=== PATIENT | female | born 1985 | race Caucasian/White ===

== ENCOUNTER → 2017-10-10 | Outpatient (CLI) | payer OTHER ==
[2017-10-10 14:20] LABS: RHEUMATOID FACTOR QUANT < 10.0 IU/ML (0-15.0)
[2017-10-10 14:20] LABS: C REACTIVE PROTEIN QUANTITATIV 1.79 MG/DL (0.00-0.30)
[2017-10-10 15:12] LABS: HEMATOCRIT 36.3 % (36.0-47.0); HEMOGLOBIN 12.3 g/dl (12.0-16.0); MEAN CORPUSCULAR HEMOGLOBIN 29.6 pg (27.0-33.0); MEAN CORPUSCULAR HGB CONC 33.9 g/dl (32.0-36.5); MEAN CORPUSCULAR VOLUME 87.5 fl (80.0-96.0); PLATELET COUNT, AUTOMATED 322 10^3/uL (150-450); RED BLOOD COUNT 4.15 10^6/uL (4.00-5.40); RED CELL DISTRIBUTION WIDTH 11.6 % (11.5-14.5); WHITE BLOOD COUNT 8.4 10^3/uL (4.0-10.0)
[2017-10-10 16:01] LABS: ERYTHROCYTE SEDIMENTATION RATE 26 mm/hr (0-20)
[2017-10-12 00:06] LABS: ANTINUCLEAR ANTIBODIES DIRECT Negative (Negative); Lyme Disease IgG/IgM Antibodie <0.91 ISR (0.00-0.90); Lyme Disease IgM Ab Quantitati <0.80 index (0.00-0.79)
== END ==
LOC: M LAB 13:15
DX: M25.50 Pain in unspecified joint (principal)
CPT/HCPCS: 86140

== ENCOUNTER 2017-12-28 14:55 | Emergency (ER) | payer OTHER ==
[2017-12-28] MEDS ORDERED: ISOVUE-370 76% 100ML VIAL (Q9967) As Ordered (15:49)
[2017-12-28 16:15] LABS: BASO % 0.3 % (0.0-1.0); EOS # 0.1 10^3/uL (0.0-0.50); EOS % 0.6 % (0.0-3.0); HEMATOCRIT 37.6 % (36.0-47.0); HEMOGLOBIN 12.8 g/dl (12.0-16.0); IMMATURE GRANULOCYTE % 0.4 % (0-3.0); LYMPH # 1.7 10^3/uL (1.5-4.5); LYMPH % 14.2 % (24.0-44.0); MEAN CORPUSCULAR HEMOGLOBIN 30.3 pg (27.0-33.0); MEAN CORPUSCULAR VOLUME 88.9 fl (80.0-96.0); MONO # 0.6 10^3/uL (0.0-0.8); MONO % 4.9 % (0.0-5.0); NEUTROPHILS # 9.5 10^3/uL (1.8-7.7); NEUTROPHILS % 79.6 % (36.0-66.0); PLATELET COUNT, AUTOMATED 295 10^3/uL (150-450); RED BLOOD COUNT 4.23 10^6/uL (4.00-5.40); RED CELL DISTRIBUTION WIDTH 11.8 % (11.5-14.5); WHITE BLOOD COUNT 11.9 10^3/uL (4.0-10.0)
[2017-12-28 16:20] LABS: KETONE, URINE AUTO RFX NEGATIVE (NEGATIVE); MUCUS, URINE RFX SMALL (NEGATIVE); NITRITE, URINE AUTO RFX NEGATIVE (NEGATIVE); RBC, URINE AUTO RFX 8 /HPF (0-3); SPECIFIC GRAVITY UR AUTO RFX 1.023 (1.002-1.035); SQUAM EPITHELIAL CELL UR AURFX 6 /HPF (0-6)
[2017-12-28 16:26] LABS: INR 1.05; PROTHROMBIN TIME 13.8 SECONDS (12.4-14.5)
[2017-12-28 16:27] LABS: PARTIAL THROMBOPLASTIN TIME 32.6 SECONDS (26.8-37.9)
[2017-12-28 16:31] LABS: LEUKOCYTE ESTERASE UR AUTO RFX 1+ (NEGATIVE); WBC, URINE AUTO RFX 26 /HPF (0-3)
[2017-12-28 16:33] LABS: LACTIC ACID SEPSIS PROTOCOL 0.7 MMOL/L (0.4-2.0)
[2017-12-28 16:35] LABS: ALBUMIN 4.2 GM/DL (3.2-5.2); ALKALINE PHOSPHATASE 49 U/L (45-117); ALT/SGPT 34 U/L (12-78); AMYLASE 41 U/L (25-115); ANION GAP 8 MEQ/L (8-16); AST/SGOT 24 U/L (7-37); BILIRUBIN,DIRECT 0.2 MG/DL (0.0-0.2); BILIRUBIN,TOTAL 0.8 MG/DL (0.2-1.0); BLOOD UREA NITROGEN 7 MG/DL (7-18); CALCIUM LEVEL 9.1 MG/DL (8.5-10.1); CARBON DIOXIDE LEVEL 25 MEQ/L (21-32); CHLORIDE LEVEL 108 MEQ/L (98-107); CPK CREATINE PHOSPHOKINASE 239 U/L (26-192); CREATININE FOR GFR 0.59 MG/DL (0.55-1.30); GLOMERULAR FILTRATION RATE > 60.0 (>60); GLUCOSE, FASTING 84 MG/DL (70-100); LIPASE 85 U/L (73-393); POTASSIUM SERUM 3.9 MEQ/L (3.5-5.1); SODIUM LEVEL 141 MEQ/L (136-145); TOTAL PROTEIN 7.2 GM/DL (6.4-8.2); TROPONIN I < 0.02 NG/ML (< 0.10)
[2017-12-28 16:36] LABS: CK-MB VALUE MASS 4.3 NG/ML (<3.6); MB/CK RELATIVE INDEX 1.79 (< OR =4)
[2017-12-28 16:37] LABS: ETHYL ALCOHOL (ETHANOL) < 0.003 % (0.000-0.010)
[2017-12-28] MEDS: NS 500 ML IV (16:59)
== END 2017-12-28 18:11 | disposition home or self-care (01) ==
LOC: M ED 14:55
DX: S20.219A Contusion of unspecified front wall of thorax, initial encounter (principal); S30.1XXA Contusion of abdominal wall, initial encounter; S09.90XA Unspecified injury of head, initial encounter; S13.4XXA Sprain of ligaments of cervical spine, initial encounter; V86.52XA Driver of snowmobile injured in nontraffic accident, initial encounter; Y92.89 Other specified places as the place of occurrence of the external cause; Z88.7 Allergy status to serum and vaccine; Z79.899 Other long term (current) drug therapy
CPT/HCPCS: Q9967

== ENCOUNTER 2021-01-26 16:16 | Emergency (ER) | payer OTHER ==
[~2021-01-26] VITALS: Ht 162.6 cm; Wt 87.1 kg
[~2021-01-26 16:16] MED LIST: ADDE20CA3 PO; AMPHET/DEXTR; BUPRPOW2; IBUP800T; SUBO8MIS; XANA0.25 PO
[2021-01-26 17:07] LABS: BASO % 0.4 % (0.0-1.0); EOS # 0.1 10^3/uL (0.0-0.5); EOS % 1.1 % (0.0-3.0); HEMATOCRIT 38.5 % (36.0-47.0); HEMOGLOBIN 13.4 g/dl (12.0-15.5); LYMPH # 2.8 10^3/uL (1.5-5.0); LYMPH % 26.5 % (24.0-44.0); MEAN CORPUSCULAR HEMOGLOBIN 31.6 pg (27.0-33.0); MEAN CORPUSCULAR HGB CONC 34.8 g/dl (32.0-36.5); MEAN CORPUSCULAR VOLUME 90.8 fl (80.0-96.0); MONO # 0.6 10^3/uL (0.0-0.8); MONO % 5.9 % (2.0-8.0); NEUTROPHILS # 6.9 10^3/uL (1.5-8.5); NEUTROPHILS % 65.4 % (36.0-66.0); PLATELET COUNT, AUTOMATED 314 10^3/uL (150-450); RED BLOOD COUNT 4.24 10^6/uL (4.00-5.40); WHITE BLOOD COUNT 10.6 10^3/uL (4.0-10.0)
[2021-01-26 17:54] LABS: BLOOD UREA NITROGEN 12 MG/DL (7-18); CALCIUM LEVEL 9.2 MG/DL (8.5-10.1); CARBON DIOXIDE LEVEL 30 MEQ/L (21-32); CHLORIDE LEVEL 105 MEQ/L (98-107); CREATININE FOR GFR 0.41 MG/DL (0.55-1.30); GLOMERULAR FILTRATION RATE > 60.0 (>60); GLUCOSE, FASTING 79 MG/DL (70-100); HCG, SERUM QUANTITATIVE 138667 MIU/ML; SODIUM LEVEL 139 MEQ/L (136-145)
--- NOTE | 2021-01-26 17:58 | REP ---
INDICATION: vaginal bleeding COMPARISON: None. TECHNIQUE: First trimester transabdominal ultrasound with color Doppler evaluation FINDINGS: Single live early intrauterine is appreciated. Gestational sac with yolk sac and pole identified. [place]-rump length of 18 mm corresponds to 8 weeks 2 days gestational age with estimated date of delivery 09/05/2021. heart rate equals 174 beats per minute. No gross abnormalities are identified. IMPRESSION: Single live early intrauterine at 8 weeks 2 days gestational age. Complete anatomical assessment should be performed and 19-20 weeks. <Electronically signed by Dale Coello > 01/26/21 [id number]
[2021-01-26 18:51] VITALS: BP 119/72
== END 2021-01-26 18:56 | disposition home or self-care (01) ==
LOC: M ED 16:16
DX: O20.8 Other hemorrhage in early pregnancy (principal); Z3A.08 8 weeks gestation of pregnancy; Z79.899 Other long term (current) drug therapy; Z88.7 Allergy status to serum and vaccine

== ENCOUNTER → 2021-05-17 | Outpatient (CLI) | payer OTHER ==
[~2021-05-17] MED LIST changes: +ACET-683 PO; +AKWA1OIN OS; +IBUP80TA PO; +MULTTAB20 PO; +POLYOPD OS; +PRED20TA PO
== END ==
LOC: M WHC 14:02
PROVIDERS: ATTEND Advanced Practice Midwife
DX: O09.522 Supervision of elderly multigravida, second trimester (principal); Z3A.24 24 weeks gestation of pregnancy

== ENCOUNTER 2021-06-07 17:59 | Emergency (ER) | payer OTHER ==
[~2021-06-07] VITALS: Ht 165.1 cm; Wt 91.6 kg
[~2021-06-07 17:59] MED LIST changes: -ACET-683 PO; -AKWA1OIN OS; -IBUP80TA PO; -MULTTAB20 PO; -POLYOPD OS; -PRED20TA PO
[2021-06-07] MEDS ORDERED: MULTTAB20 PO (18:11)
[2021-06-07 19:39] LABS: BASO % 0.2 % (0.0-1.0); EOS # 0.1 10^3/uL (0.0-0.5); EOS % 1.1 % (0.0-3.0); HEMATOCRIT 33.6 % (36.0-47.0); HEMOGLOBIN 11.7 g/dl (12.0-15.5); LYMPH # 2.3 10^3/uL (1.5-5.0); LYMPH % 17.7 % (24.0-44.0); MEAN CORPUSCULAR HEMOGLOBIN 31.5 pg (27.0-33.0); MEAN CORPUSCULAR HGB CONC 34.8 g/dl (32.0-36.5); MEAN CORPUSCULAR VOLUME 90.6 fl (80.0-96.0); MONO # 0.7 10^3/uL (0.0-0.8); MONO % 5.5 % (2.0-8.0); NEUTROPHILS # 9.5 10^3/uL (1.5-8.5); NEUTROPHILS % 74.7 % (36.0-66.0); PLATELET COUNT, AUTOMATED 252 10^3/uL (150-450); RED BLOOD COUNT 3.71 10^6/uL (4.00-5.40); WHITE BLOOD COUNT 12.7 10^3/uL (4.0-10.0)
[2021-06-07 19:49] LABS: INR 1.04
[2021-06-07 19:50] LABS: PARTIAL THROMBOPLASTIN TIME 31.3 SECONDS (25.9-37.0)
[2021-06-07 20:14] LABS: ALBUMIN 2.8 GM/DL (3.2-5.2); ALT/SGPT 30 U/L (12-78); BILIRUBIN,DIRECT 0.1 MG/DL (0.0-0.2); BILIRUBIN,TOTAL 0.4 MG/DL (0.2-1.0); BLOOD UREA NITROGEN 10 MG/DL (7-18); CALCIUM LEVEL 8.8 MG/DL (8.5-10.1); CARBON DIOXIDE LEVEL 23 MEQ/L (21-32); CHLORIDE LEVEL 110 MEQ/L (98-107); CK-MB VALUE MASS 19.1 NG/ML (<3.6); CPK CREATINE PHOSPHOKINASE 504 U/L (26-192); CREATININE FOR GFR 0.37 MG/DL (0.55-1.30); GLOMERULAR FILTRATION RATE > 60.0 (>60); GLUCOSE, FASTING 83 MG/DL (70-100); MB/CK RELATIVE INDEX 3.79 (< OR =4); POTASSIUM SERUM 4.1 MEQ/L (3.5-5.1); SODIUM LEVEL 140 MEQ/L (136-145); TROPONIN I < 0.02 NG/ML (< 0.10)
--- NOTE | 2021-06-07 21:10 | REPVR ---
PROCEDURE INFORMATION: Exam: MR Head Without Contrast Exam date and time: 06/07/2021 8:44 PM Age: 35 years old Clinical indication: Visual disturbance and weakness, facial; Patient HX: Right sided facial drooping; Additional info: Mrv please, CVA TECHNIQUE: Imaging protocol: MR of the head without contrast. COMPARISON: 1. CT Head without contrast 2017-12-28 16:[address] Maxilofacial w/out contrast 2017-12-28 16:19 FINDINGS: Limitations: Motion artifact does moderately limit the sensitivity of this examination. Brain: Normal brain volume. No diffusion restriction to suggest acute ischemia or infarct. No abnormal FLAIR parenchymal signal hyperintensities. No gradient susceptibility blooming within the brain parenchyma to suggest hemorrhage. No midline shift, mass, or fluid collection is present. The brainstem, posterior fossa and cervical medullary junction are preserved. Cerebral ventricles: Normal. No ventriculomegaly. Bones/joints: Unremarkable. Paranasal sinuses: Normal as visualized. No acute sinusitis. Mastoid air cells: Normal as visualized. No mastoid effusion. Orbital cavity: Unremarkable. Soft tissues: Unremarkable. IMPRESSION: Normal brain MR. Electronically signed by: Nito Ferraro On 06/07/2021 21:10:16 PM
--- NOTE | 2021-06-07 21:11 | REPVR ---
PROCEDURE INFORMATION: Exam: MRA Head Without Contrast; Venography Exam date and time: 06/07/2021 8:44 PM Age: 35 years old Clinical indication: Visual disturbance; Transient visual loss; Patient HX: 28wks , right sided facial droop; Additional info: Mrv please, CVA TECHNIQUE: Imaging protocol: Magnetic resonance angiography of the head without contrast. Exam focused on the veins. COMPARISON: 1. CT Head without contrast 2017-12-28 16:[address] Maxilofacial w/out contrast 2017-12-28 16:19 FINDINGS: Limitations: Study is limited by the absence of contrast. Motion artifact does mildly limit the sensitivity of this examination. Superior sagittal sinus: Patent. Straight sinus: Patent. Transverse sinuses: Patent. Sigmoid sinuses: Patent. Internal jugular veins: Visualized segment patent. IMPRESSION: The visualized deep and superficial dural venous sinuses and cortical veins are patent. Electronically signed by: Nito Ferraro On 06/07/2021 21:11:17 PM
[2021-06-07] MEDS ORDERED: predniSONE 20 MG TAB PO ONE (21:40)
[2021-06-07] MEDS ORDERED: PRED20TA PO (21:45)
[2021-06-07] MEDS ORDERED: POLYOPD OS (21:48)
[2021-06-07] MEDS ORDERED: AKWA1OIN OS (21:48)
[2021-06-07 22:14] VITALS: BP 106/58
--- NOTE | 2021-06-08 15:49 | ECGEPIP ---
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
[2021-06-09 14:09] LABS: Lyme Disease IgG/IgM Antibodie <0.91 ISR (0.00-0.90); Lyme Disease IgM Ab Quantitati <0.80 index (0.00-0.79)
== END 2021-06-07 22:19 | disposition admitted as inpatient to this hospital (09) ==
LOC: M ED 17:59
DX: O99.891 Other specified diseases and conditions complicating pregnancy (principal); G51.0 Bell's palsy; Z3A.28 28 weeks gestation of pregnancy; O09.522 Supervision of elderly multigravida, second trimester; Z88.7 Allergy status to serum and vaccine
CPT/HCPCS: 70544; 70551; 80048; 80076; 82550; 82553; 85025; 85610; 85730; 86617; 93005; 93041; 94760; 99285; J7512

== ENCOUNTER 2021-06-07 22:24 | Outpatient (CLI) | payer OTHER ==
[~2021-06-07] VITALS: Ht 162.6 cm; Wt 91.6 kg
[~2021-06-07 22:24] MED LIST changes: +AKWA1OIN OS; +MULTTAB20 PO; +POLYOPD OS; +PRED20TA PO
[2021-06-07 22:49] VITALS: BP 101/57
[2021-06-08] MEDS ORDERED: BETAMETHASONE SOLUSPAN 6MG/ML 5ML VIAL (J0702 PER 3MG) IM SCH (06:00)
[2021-06-08 06:36] VITALS: BP 101/64
[2021-06-08 08:05] VITALS: BP 129/62
[2021-06-08 10:57] LABS: HEPATITIS B SURFACE ANTIGEN NEGATIVE (NEGATIVE)
[2021-06-08 11:02] LABS: HEPATITIS C VIRUS ABY INDEX > 11.0 INDEX (<0.8)
[2021-06-08 18:26] LABS: GC DNA AMPLIFICATION NEGATIVE (NEGATIVE)
== END 2021-06-08 09:05 | disposition home or self-care (01) ==
LOC: M LDO 22:24
PROVIDERS: ATTEND Advanced Practice Midwife
DX: O26.892 Other specified pregnancy related conditions, second trimester (principal); O09.512 Supervision of elderly primigravida, second trimester; R10.2 Pelvic and perineal pain; Z3A.27 27 weeks gestation of pregnancy
CPT/HCPCS: 36415; 81001; 86762; 86780; 86803; 86850; 86900; 86901; 87340; 87491; 87521; 87591; J0702; U0002

== ENCOUNTER 2021-07-29 17:53 | Emergency (ER) | payer OTHER ==
[~2021-07-29] VITALS: Ht 162.6 cm; Wt 94.1 kg
[2021-07-29 17:54] VITALS: BP 128/68
[2021-07-29 22:01] LABS: BASO % 0.3 % (0.0-1.0); EOS # 0.1 10^3/uL (0.0-0.5); EOS % 1.2 % (0.0-3.0); HEMATOCRIT 35.3 % (36.0-47.0); HEMOGLOBIN 11.7 g/dl (12.0-15.5); LYMPH # 2.1 10^3/uL (1.5-5.0); LYMPH % 17.6 % (24.0-44.0); MEAN CORPUSCULAR HEMOGLOBIN 30.1 pg (27.0-33.0); MEAN CORPUSCULAR HGB CONC 33.1 g/dl (32.0-36.5); MEAN CORPUSCULAR VOLUME 90.7 fl (80.0-96.0); MONO # 0.9 10^3/uL (0.0-0.8); MONO % 7.4 % (2.0-8.0); NEUTROPHILS # 8.6 10^3/uL (1.5-8.5); NEUTROPHILS % 72.3 % (36.0-66.0); PLATELET COUNT, AUTOMATED 227 10^3/uL (150-450); RED BLOOD COUNT 3.89 10^6/uL (4.00-5.40); WHITE BLOOD COUNT 11.9 10^3/uL (4.0-10.0)
[2021-07-29 22:19] LABS: ALBUMIN 2.5 GM/DL (3.2-5.2); ALT/SGPT 30 U/L (12-78); BILIRUBIN,DIRECT 0.1 MG/DL (0.0-0.2); BILIRUBIN,TOTAL 0.5 MG/DL (0.2-1.0); BLOOD UREA NITROGEN 11 MG/DL (7-18); CALCIUM LEVEL 8.7 MG/DL (8.5-10.1); CARBON DIOXIDE LEVEL 25 MEQ/L (21-32); CHLORIDE LEVEL 109 MEQ/L (98-107); CREATININE FOR GFR 0.47 MG/DL (0.55-1.30); GLOMERULAR FILTRATION RATE > 60.0 (>60); GLUCOSE, FASTING 76 MG/DL (70-100); POTASSIUM SERUM 4.1 MEQ/L (3.5-5.1); SODIUM LEVEL 141 MEQ/L (136-145); TOTAL PROTEIN 5.9 GM/DL (6.4-8.2)
--- OUTSIDE RECORDS SUMMARY | 2021-07-29 23:40 | CCD ---
Author Author [employer] Organization [employer] Address Unknown Phone Unavailable Care Team Providers Care Chuck Boner Name Role Phone Sujatha Barron Unavailable PROBLEMS Type Condition ICD9-CM Code [id number] Code Onset Dates Condition S tatus W/U Status Risk SNOMED Code Notes Problem Supervision of other normal Z34.80 Ac tive confirm [id number] ALLERGIES Allergen (clinical drug ingredient) Drug/Non Drug Allergy do cumented on EMR Reaction Allergy Type Onset Date Status pertussis seizures/full-body swelling Non Drug Allergy Active ENCOUNTERS from 1985 to 2021-07-15 Encounter Location Date Provider Diagnosis [facility] [address] [place] [address] [place] [address] Jun, Sujatha Barron IMMUNIZATIONS No Information SOCIAL HISTORY Tobacco Use: Social History Observation Description Date Details (start date - stop date) Never Smoker Sex Assigned At : Social History Observation Description Sex Assigned At Unknown Tobacco Use: Question Answer Notes Are you a: never smoker REASON FOR REFERRAL No Information VITAL SIGNS No information MEDICATIONS Medication SIG (Take, Route, Frequency, Duration) Notes Start Da te End Date Status Tums 500 MG 1 tablet Orally Once a day Active 27-1 MG 1 tablet Orally Once a day Active PROCEDURES No Information RESULTS No Results REASON FOR VISIT appt and + Hep C MEDICAL (GENERAL) HISTORY Type Description Date Medical History Low Blood Pressure Surgical History Appendectomy Surgical History Cholecystectomy 08/2019 Surgical History demise at 27 weeks 2001 Hospitalization History childbirth x 2 Hospitalization History Seizures as an following pert ussis Goals Section No Information Health Concerns No Information MEDICAL EQUIPMENT No Information MENTAL STATUS No Information FUNCTIONAL STATUS No Information ASSESSMENTS No Information PLAN OF TREATMENT No Information Insurance Providers Payer Name Payer Address Payer Phone Insured Name Patient Relati onship to Insured Coverage Start Date Coverage End Date [facility] CORPORATE CLAIMS DEPT [address] [facility] [phone] SHU FRANCISCO self
--- OUTSIDE RECORDS SUMMARY | 2021-07-29 23:40 | CCD ---
Author Author [facility] Address Unknown Phone Unavailable Support Name Relationship Address Phone UE Next Of Kin Unknown Unavailable TIOGA CONSTRUCTION Next [place] ? [place] [address] Next Of Kin Unknown Unavailable SHAILESH GALO Next Of Kin [address] [place] [address] Re-disclosure Warning The records that you are about to access may contain information from federally-assisted alcohol or drug abuse programs. If such information is present, then the following federally mandated warning applies: This information has been disclosed to you from records protected by federal confidentiality rules (42 CFR part 2). The federal rules prohibit you from making any further disclosure of this information unless further disclosure is expressly permitted by the written consent of the person to whom it pertains or as otherwise permitted by 42 CFR part 2. A general authorization for the release of medical or other information is NOT sufficient for this purpose. The Federal rules restrict any use of the information to criminally investigate or prosecute any alcohol or drug abuse patient.The records that you are about to access may contain highly sensitive health information, the redisclosure of which is protected by Article 27-F of the [facility] Public Health law. If you continue you may have access to information: Regarding HIV / AIDS; Provided by facilities licensed or operated by the [facility] Office of Mental Health; or Provided by the [facility] Office for People With Developmental Disabilities. If such information is present, then the following [facility] mandated warning applies: This information has been disclosed to you from confidential records which are protected by state law. State law prohibits you from making any further disclosure of this information without the specific written consent of the person to whom it pertains, or as otherwise permitted by law. Any unauthorized further disclosure in violation of state law may result in a fine or fci sentence or both. A general authorization for the release of medical or other information is NOT sufficient authorization for further disc losure. Family History Family Member Name Family Member Gender Family Member Status Date o f Status Description Data Source(s) Unknown Female Problem [facility] ([facility]) Encounters Encounter Providers Location Date Indications Data Source(s ) Unknown [address] [facility], [facility] [address] 06/29/2021 12:00:00 AM EDT eCW1 (Formerly [facility]) Unknown [address] [facility] [address] 06/10/2021 12:00:00 AM EDT eCW1 (Formerly [facility]) ([facility]) [facility] Visit [address] [place] [address] 04/23/2021 12:00:00 AM EDT eCW1 ([facility]) Medications Medication Brand Name Start Date Product Form Dose Route Admi nistrative Instructions Pharmacy Instructions Status Indications Reaction Description Data Source(s) 20 mg 07/27/2021 12:00:00 AM EDT tablet 56 TAKE ONE TABLET BY MOUTH IN THE MORNING AND ONE TABLET AT NOON MAXIMUM DAILY DOSE = 2 TAKE ONE TABLET BY MOUTH IN THE MORNING AND ONE TABLET AT NOON MAXIMUM DAILY DOSE = 2 SOLD: 07/27/2021 [facility] Amphetamine aspartate 2.5 MG / Amphetami ne Sulfate 2.5 MG / Dextroamphetamine saccharate 2.5 MG / Dextroamphetamine Sulfate 2.5 MG Oral Tablet 10 mg DEXTROAMPHETAMINE/AMPHETAMINE 07/27/2021 12:00:00 AM EDT tablet 28 TAKE ONE TABLET BY MOUTH AT NOON MAXIMUM DAILY DOSE = 1 TAKE ONE TABLET BY MOUTH AT NOON MAXIMUM DAILY DOSE = 1 SOLD: 07/27/2021 [facility] 12-3 mg 07/10/2021 12:00:00 AM EDT film [address] PL[address] ONE FILM UNDER THE TONGUE TWICE A DAY MAXIMUM DAILY DOSE = 2 PLACE ONE FILM UNDER THE TONGUE TWICE A DAY MAXIMUM DAILY DOSE = 2 SOLD: 07/12/2021 [facility] Amphetamine aspartate 5 MG / Amphetamine Sulfate 5 MG / Dextroamphetamine saccharate 5 MG / Dextroamphetamine Sulfate 5 MG Oral Tablet 20 mg DEXTROAMPHETAMINE SULF-SACCHARATE/AMPHETAMINE SULF-ASPARTATE 12/07/2020 12:00:00 AM EST tablet 6 TAKE ONE TABLET BY MOUTH EVERY MORNING AND 1 TABLET AT NOON, MAXIMUM DAILY DOSE = 2 TABLETS TAKE ONE TABLET BY MOUTH EVERY MORNING A ND 1 TABLET AT NOON, MAXIMUM DAILY DOSE = 2 TABLETS SOLD: 12/07/2020 [facility] 12-3 mg 12/07/2020 12:00:00 AM EST film 6 DISSOLVE 1 FILM UNDER THE TONGUE TWO TIMES A DAY, MAXIMUM DAILY DOSE = 2 FILMS DISSOLVE 1 FILM UNDER THE TONGUE TWO TIMES A DAY, MAXIMUM DAILY DOSE = 2 FILMS SOLD: 12/07/2020 [facility] 10 mg 12/07/2020 12:00:00 AM EST tablet 3 TAKE ONE TABLET BY MOUTH ONCE DAILY AT NOON, MAXIMUM DAILY DOSE = 1 TABLET TAKE ONE TABLET BY MOUTH ONCE DAILY AT NOON, MAXIMUM DAILY DOSE = 1 TABLET SOLD: 12/07/2020 [facility] 20 mg 09/11/2020 12:00:00 AM EST tablet 8 TAKE ONE TABLET BY MOUTH EVERY MORNING AND ONE TABLET AT NOON, MAXIMUM DAILY DOSE = 2 TABLETS TAKE ONE TABLET BY MOUTH EVERY MORNING AND ONE TABLET AT NOON, MAXIMUM DAILY DOSE = 2 TABLETS SOLD: 09/12/2020 [facility] 10 mg 09/11/2020 12:00:00 AM EST tablet 4 TAKE 1 TABLET BY MOUTH AT NOON MAXIMUM DAILY DOSE = 1 TABLET TAKE 1 TABLET BY MOUTH AT NOON MAXIMUM D AILY DOSE = 1 TABLET SOLD: 09/12/2020 [facility] 20 mg 09/02/2020 12:00:00 AM EST tablet 20 TAKE ONE TABLET BY MOUTH EVERY MORNING AND ONE TABLET AT NOON, MAXIMUM DAILY DOSE = 2 TABLETS TAKE ONE TABLET BY MOUTH EVERY MORNING AND ONE TABLET AT NOON, MAXIMUM DAILY DOSE = 2 TABLETS SOLD: 09/02/2020 [facility] 12-3 mg 08/31/2020 12:00:00 AM EST film 8 DISSOLVE 1 FILM UNDER THE TONGUE TWO TIMES A DAY, MAXIMUM DAILY DOSE = 2 FILMS DISSOLVE 1 FILM UNDER THE TONGUE TWO TIMES A DAY, MAXIMUM DAILY DOSE = 2 FILMS SOLD: 08/31/2020 [facility] 10 mg 08/30/2020 12:00:00 AM EST tablet 10 TAKE ONE TABLET BY MOUTH AT NOON, MAXIMUM DAILY DOSE = 1 TABLET TAKE ONE TABLET BY MOUTH AT NOON, MAXIMU M DAILY DOSE = 1 TABLET SOLD: 08/30/2020 [facility] 8-2 mg 08/30/2020 12:00:00 AM EST tablet, sublingual 2 DISSOLVE TWO TABLETS UNDER THE TONGUE EVERY DAY, MAXIMUM DAILY DOSE = 2 TABLETS DISSOLVE TWO TABLETS UNDER THE TONGUE EVERY DAY, MAXIMUM DAILY DOSE = 2 TABLETS SOLD: 08/30/2020 [facility] 12-3 mg 08/24/2020 12:00:00 AM EST film 12 DISSOVLE 1 FILM UNDER THE TONGUE TWO TIMES A DAY AND 1/2 FILM AT BEDTIME, MAXIMUM DAILY DOSE = 2 & 1/2 FILMS DISSOVLE 1 FILM UNDER THE TONGUE TWO TIMES A DAY AND 1/2 FILM AT BEDTIME, MAXIMUM DAILY DOSE = 2 & 1/2 FILMS SOLD: 08/25/2020 [facility] 12-3 mg 08/19/2020 12:00:00 AM EST film 6 PLACE ONE STRIP UNDER THE TONGUE TWO TIMES A DAY AND ONE-HALF STRIP AT BEDTIME. MAXIMUM DAILY DOSE = 2 & 1/[address] ONE STRIP UNDER THE TONGUE TWO MARLENA ES A DAY AND ONE-HALF STRIP AT BEDTIME. MAXIMUM DAILY DOSE = 2 & 1/2 STRIPS SOLD: 08/21/2020 [facility] 12-3 mg 08/19/2020 12:00:00 AM EST film 6 PLACE ONE STRIP UNDER THE TONGUE TWO TIMES A DAY AND ONE-HALF STRIP AT BEDTIME. MAXIMUM DAILY DOSE = 2 & 1/[address] ONE STRIP UNDER THE TONGUE TWO MARLENA ES A DAY AND ONE-HALF STRIP AT BEDTIME. MAXIMUM DAILY DOSE = 2 & 1/2 STRIPS SOLD: 08/19/2020 [facility] 20 mg 08/02/2020 12:00:00 AM EDT tablet 56 TAKE 1 TABLET BY MOUTH IN THE MORNING AND 1 TABLET AT NOON MAXIMUM DAILY DOSE = 2 TABLETS TAKE 1 TABLET BY MOUTH IN THE MORNING AND 1 TABLET AT NOON MAXIMUM DAILY DOSE = 2 TABLETS SOLD: 08/06/2020 [facility] 8-2 mg 07/30/2020 12:00:00 AM EDT tablet, sublingual 70 DISSOLVE 2 OR 3 TABLETS BY MOUTH UNDER TONGUE DAILY NEEDED FOR PAIN, MAXIMUM DAILY DOSE = 3 TABLETS DISSOLVE 2 OR 3 TABLETS BY MOUTH UNDER T ONGUE DAILY NEEDED FOR PAIN, MAXIMUM DAILY DOSE = 3 TABLETS SOLD: 07/30/2020 [facility] 12-3 mg 07/28/2020 12:00:00 AM EDT film 5 DISSOLVE 1 FILM BY MOUTH TWO TIMES A DAY AND 1/2 FILM AT BEDTIME, MAXIMUM DAILY DOSE = 2 & 1/2 FILMS DISSOLVE 1 FILM BY MOUTH TWO TIMES A DAY AND 1/2 FILM AT BEDTIME, MAXIMUM DAILY DOSE = 2 & 1/2 FILMS SOLD: 07/28/2020 [facility] 10 mg 07/27/2020 12:00:00 AM EDT tablet 28 TAKE 1 TABLET BY MOUTH AT NOON MAXIMUM DAILY DOSE = 1 TABLET TAKE 1 TABLET BY MOUTH AT NOON MAXIMUM D AILY DOSE = 1 TABLET SOLD: 07/28/2020 [facility] 20 mg 07/04/2020 12:00:00 AM EDT tablet 56 TAKE ONE TABLET BY MOUTH EVERY MORNING AND 1 AT NOON * MAXIMUM DAILY DOSE = 2 TAKE ONE TABLET BY MOUTH EVERY MORNING AND 1 AT NOON * MAXIMUM DAILY DOSE = 2 SOLD: 07/06/2020 [facility] 12-3 mg 07/01/2020 12:00:00 AM EDT film 70 PLACE ONE FILM UNDER THE TONGUE TWICE A DAY AND 1/2 FILM AT BEDTIME * MAXIMUM DAILY DOSE = 2 & 1/2 PLACE ONE FILM UNDER THE TONGUE TWICE A DAY AND 1/2 FILM AT BEDTIME * MAXIMUM DAILY DOSE = 2 & 1/2 SOLD: 07/01/2020 [facility] 10 mg 07/01/2020 12:00:00 AM EDT tablet 28 TAKE ONE TABLET BY MOUTH EVERY DAY AT NOON * MAXIMUM DAILY DOSE = 1 TAKE ONE TABLET BY MOUTH EVERY DAY AT NO ON * MAXIMUM DAILY DOSE = 1 SOLD: 07/01/2020 [facility] 20 mg 06/05/2020 12:00:00 AM EDT tablet 56 TAKE 1 TABLET BY MOUTH IN THE MORNING AND 1 TABLET AT NOON MAXIMUM DAILY DOSE = 2 TAKE 1 TABLET BY MOUTH IN THE MORNING AND 1 TABLET AT NOON MAXIMUM DAILY DOSE = 2 SOLD: 06/07/2020 [facility] 12-3 mg 06/04/2020 12:00:00 AM EDT film 70 PLACE ONE FILM UNDER THE TONGUE TWICE A DAY AND 1/2 FILM AT BEDTIME * MAXIMUM DAILY DOSE = 2 & 1/2 PLACE ONE FILM UNDER THE TONGUE TWICE A DAY AND 1/2 FILM AT BEDTIME * MAXIMUM DAILY DOSE = 2 & 1/2 SOLD: 06/04/2020 [facility] Insurance Providers Payer name Policy type / Coverage type Policy ID Covered democrat ID Covered democrat's relationship to 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 Plan Information MVP (pr) Commercial [id number] Self [employer] (WC) Workers Compensation [id number] Self [employer] Ins () Workers Compensation [id number] Self [employer] O [id number] S [id number] [employer] [id number] SP [id number] [employer] O [id number] S [id number] ORYX [id number] SP [id number] Medicaid [place] Medigap Part B [id number] Self Ghi FHP-(DO Not Use) Medigap Part B [id number] Self MEDICAID [id number] SP [id number] MEDICAID JAYME [id number] S [id number] UNITED HE[employer] MEDICAID JAYME HMO [id number] S [id number] SELF PAY SP [id number] S [id number] LEATHA [id number] SP [id number] 200 [id number] LEATHA [id number] SP [id number] [employer] [id number] SP [id number] Problems, Conditions, and Diagnoses Code Display Name Description Problem Type Effective Dates Data Source(s) Z34.80 care Supervision of other normal P erikam 04/22/2021 12:00:00 AM EDT eCW1 ([facility]) Surgeries/Procedures No Information Results ID Date Data Source [id number] 06/08/2021 12:25:00 AM EDT [facility] Name Value Range Interpretation Code Description Data Pricila rce(s) Supporting Document(s) SARS coronavirus 2 RNA [Presence] in Res piratory specimen by DAMARIS with probe detection NEGATIVE [facility] This lab was ordered by [facility] a nd reported by [facility]. Procedure Social History Code Duration Value Status Description Data Source(s ) Smoking 05/27/2021 12:00:00 AM EDT Never Smoker completed Never S moker eCW1 ([facility]) Smoking 05/27/2021 12:00:00 AM EDT Never Smoker completed Never S moker eCW1 ([facility]) Smoking 04/23/2021 12:00:00 AM EDT Never Smoker completed Never S moker eCW1 ([facility]) Vital Signs ID Date Data Source UNK Name Value Range Interpretation Code Description Data Source(s) Body weight 192.2 [lb_av] 192.2 [lb_av] eCW1 ([facility]) Body weight 87.18 kg 87.18 kg W1 ([facility]) Body height 64.02 [in_i] 64.02 [in_i] W1 ([facility]) Body mass index (BMI) [Ratio] 32.97 kg/m2 32.97 kg/m2 W1 ([facility]) Systolic blood pressure 122 mm[Hg] 122 mm[Hg] e CW1 ([facility]) Diastolic blood pressure 78 mm[Hg] 78 mm[Hg] eCW1 ([facility])
--- OUTSIDE RECORDS SUMMARY | 2021-07-29 23:40 | CCD ---
Author Author [employer] [facility] Organization [employer] [facility] Address Unknown Phone Unavailable Care Team Providers Care Steel Erector Apprentice Name Role Phone Josef Andersen Unavailable PROBLEMS Type Condition ICD9-CM Code [id number] Code Onset Dates Condition S tatus W/U Status Risk SNOMED Code Notes Problem Supervision of other normal Z34.80 Ac tive confirm [id number] ALLERGIES Allergen (clinical drug ingredient) Drug/Non Drug Allergy do cumented on EMR Reaction Allergy Type Onset Date Status pertussis seizures/full-body swelling Non Drug Allergy Active ENCOUNTERS from 1985 to 2021-06-15 Encounter Location Date Provider Diagnosis [facility] [address] [place] [address] [place] [address] Jun, Josef Andersen IMMUNIZATIONS No Information SOCIAL HISTORY Tobacco Use: [...] Information RESULTS No Results REASON FOR VISIT Not Feeling Well MEDICAL (GENERAL) HISTORY Type Description Date Medical [...] Insured Coverage Start Date Coverage End Date [facility] DE[facility] [address] [facility] [phone] SHU FRANCISCO self
--- NOTE | 2021-07-29 23:44 | REPVR ---
PROCEDURE INFORMATION: Exam: US Duplex Right Lower Extremity Veins, Limited Exam date and time: 07/29/2021 11:19 PM Age: 35 years old Clinical indication: Edema, localized; Lower extremity, right; Additional info: Swelling TECHNIQUE: Imaging protocol: Real-time Duplex ultrasound of the Right Lower Extremity with 2-D billings scale, color Doppler flow and spectral waveform analysis with image documentation. Limited exam was focused on the right lower extremity veins. COMPARISON: US Duplex, Ext,LOWER veins,unilat 02/19/2016 9:07 PM FINDINGS: Right deep veins: Unremarkable. The common femoral, femoral, proximal profunda femoral and popliteal veins are patent without thrombus. Normal Doppler waveforms. Normal compressibility and/or augmentation response. Right superficial veins: Unremarkable. Saphenofemoral junction is patent without thrombus. Soft tissues: Soft tissue swelling. IMPRESSION: No evidence of deep vein thrombosis. Electronically signed by: Taco Pedroza On 07/29/2021 23:44:14 PM
== END 2021-07-29 23:58 | disposition home or self-care (01) ==
LOC: M ED 17:53
DX: O12.03 Gestational edema, third trimester (principal); Z3A.35 35 weeks gestation of pregnancy; O99.343 Other mental disorders complicating pregnancy, third trimester; Z79.899 Other long term (current) drug therapy; Z88.7 Allergy status to serum and vaccine

== ENCOUNTER → 2021-07-30 | Outpatient (REF) | payer OTHER | LOC: M SFHCWAGY 15:19 | PROVIDERS: ATTEND Advanced Practice Midwife | DX: O09.529 Supervision of elderly multigravida, unspecified trimester (principal); Z3A.00 Weeks of gestation of pregnancy not specified ==

== ENCOUNTER → 2021-07-30 | Outpatient (CLI) | payer OTHER ==
[2021-07-30 16:04] LABS: HEMATOCRIT 34.8 % (36.0-47.0); HEMOGLOBIN 11.6 g/dl (12.0-15.5); MEAN CORPUSCULAR HEMOGLOBIN 30.1 pg (27.0-33.0); MEAN CORPUSCULAR HGB CONC 33.3 g/dl (32.0-36.5); MEAN CORPUSCULAR VOLUME 90.2 fl (80.0-96.0); PLATELET COUNT, AUTOMATED 211 10^3/uL (150-450); RED BLOOD COUNT 3.86 10^6/uL (4.00-5.40); WHITE BLOOD COUNT 10.8 10^3/uL (4.0-10.0)
[2021-08-04 12:12] LABS: HEPATITIS C QUANTITATION 261000 IU/mL (.); HEPATITIS C VIRUS GENOTYPE 1b (.)
== END ==
LOC: M PLALAB 14:23
PROVIDERS: ATTEND Advanced Practice Midwife
DX: O09.529 Supervision of elderly multigravida, unspecified trimester (principal); R76.8 Other specified abnormal immunological findings in serum

== ENCOUNTER → 2021-07-30 | Outpatient (REF) | payer OTHER | LOC: M SFHCWAGY 15:17 | PROVIDERS: ATTEND Advanced Practice Midwife | DX: Z36.85 Encounter for antenatal screening for Streptococcus B (principal); O09.529 Supervision of elderly multigravida, unspecified trimester; Z3A.00 Weeks of gestation of pregnancy not specified ==

== ENCOUNTER → 2021-08-09 | Outpatient (CLI) | payer OTHER ==
--- NOTE | 2021-08-09 14:06 | REP ---
INDICATION: F/U ANATOMY, GROWTH/ SAMAN, INCREASED MATERNAL AGE. COMPARISON: 05/17/2021, 01/26/2021. TECHNIQUE: Real-time sonographic evaluation of the gravid uterus performed. FINDINGS: Estimated gestational age is36 weeks 1 day, EDC 09/05/2021. Today's measurements indicate appropriate growth. Presentation: Cephalic Placenta posterior, grade 2, without evidence of placenta previa. heart rate is recorded at 140 beats per minute. Amniotic fluid is subjectively normal. SAMAN 12.4, normal 7.7-24.9. Closed cervical length is measured at 3.2 cm. Biometry chart: BPD: 90 mm, 36 weeks 4 days, 56th percentile. HC: 324 mm, 36 weeks 5 days, 60th percentile AC: 318 mm, 35 weeks 5 days, 44th percentile Femur length: 72 mm, 36 weeks 6 days, 61st percentile HC to AC ratio: 1.02, normal range 0.92-1.11. Estimated weight: 2877g, 55th percentile. The four-chamber heart and ventricular outflow tracts are visualized and are grossly unremarkable. IMPRESSION: Viable single intrauterine gestation as above. <Electronically signed by Chris Erickson > 08/09/21 [id number]
== END ==
LOC: M WHC 10:44
PROVIDERS: ATTEND Advanced Practice Midwife
DX: Z36.2 Encounter for other antenatal screening follow-up (principal); O09.523 Supervision of elderly multigravida, third trimester; Z3A.36 36 weeks gestation of pregnancy

== ENCOUNTER 2021-09-09 15:48 | Inpatient (IN) | payer OTHER ==
[~2021-09-09] VITALS: Ht 162.6 cm; Wt 103.5 kg
--- OUTSIDE RECORDS SUMMARY | 2021-09-09 15:52 | CCD ---
Author Author [facility] [facility] [facility] Organization [facility] Address Unknown Phone Unavailable Care Team Providers Care Glass Bead Maker Name Role Phone Josef Andersen Unavailable PROBLEMS Type Condition ICD9-CM Code [id number] Code Onset Dates Condition S tatus W/U Status Risk SNOMED Code Notes Problem Supervision of other normal Z34.80 Ac tive confirm [id number] ALLERGIES Allergen (clinical drug ingredient) Drug/Non Drug Allergy do cumented on EMR Reaction Allergy Type Onset Date Status Pertussis Vaccine Pertussis Vaccines seizures/full-body swelling Drug Allergy Active ENCOUNTERS from 1985 to 2021-08-02 Encounter Location Date Provider Diagnosis [facility] [address] [place] [address] [place] [address] Jul, Josef Andersen IMMUNIZATIONS No Information SOCIAL HISTORY [...] Notes Start Da te End Date Status 27-1 MG 1 tablet Orally Once a day Active Tums 500 MG 1 tablet Orally Once a day Active Pepto-Bismol Active PROCEDURES No Information RESULTS No Results REASON FOR VISIT pt MEDICAL (GENERAL) HISTORY Type Description Date Medical [...] Information ASSESSMENTS No Information PLAN OF TREATMENT Next Appt Details Provider Name:Traci Miller, 2021-08-06 0 8:40:00 AM, [address] [facility], , [place], [address], Insurance Providers Payer Name Payer Address Payer Phone Insured Name Patient Relati onship to Insured Coverage Start Date Coverage End Date COUNT INCLUDES THE [facility] [employer] CLAIMS DEPT [address] [facility] [phone] SHU FRANCISCO self
--- OUTSIDE RECORDS SUMMARY | 2021-09-09 15:52 | CCD ---
Author Author [facility] Organization [facility] Address Unknown Phone Unavailable Care Team Providers Care Hotel Administrative Assistant Name Role Phone Paul Traci Unavailable PROBLEMS Type Condition ICD9-CM Code [id number] Code Onset Dates Condition S tatus W/U Status Risk SNOMED Code Notes Problem Supervision of other normal Z34.80 Ac tive confirm [id number] ALLERGIES Allergen (clinical drug ingredient) Drug/Non Drug Allergy do cumented on EMR Reaction Allergy Type Onset Date Status Pertussis Vaccine Pertussis Vaccines seizures/full-body swelling Drug Allergy Active ENCOUNTERS from 1985 to 2021-07-30 Encounter Location Date Provider Diagnosis [facility] [address] [place] [address] [place] [address] Jul, Traci Miller IMMUNIZATIONS No Information SOCIAL HISTORY Tobacco Use: [...] RESULTS No Results REASON FOR VISIT appt MEDICAL (GENERAL) HISTORY Type Description Date Medical [...] OF TREATMENT Next Appt Details Provider Name:Traci Miller 2021-08-06 0 8:40:00 AM, [address] [facility], , [place], [address], Insurance Providers Payer Name Payer Address Payer Phone Insured Name Patient Relati onship to Insured Coverage Start Date Coverage End Date [facility] DEPT [address] [facility] [phone] SHU FRANCISCO self
--- OUTSIDE RECORDS SUMMARY | 2021-09-09 15:52 | CCD ---
Author Author [facility] Organization [facility] Address Unknown Phone Unavailable Care Team Providers Care Labeling Specialist Name Role Phone Traci Miller Unavailable PROBLEMS Type Condition ICD9-CM Code [id number] Code Onset Dates Condition S tatus W/U Status Risk SNOMED Code Notes Problem Supervision of other normal Z34.80 Ac tive confirm [id number] ALLERGIES Allergen (clinical drug ingredient) Drug/Non Drug Allergy do cumented on EMR Reaction Allergy Type Onset Date Status Pertussis Vaccine Pertussis Vaccines seizures/full-body swelling Drug Allergy Active ENCOUNTERS from 1985 to 2021-08-10 Encounter Location Date Provider Diagnosis [facility] [address] [place] [address] [place] [address] Jul, Traci Miller IMMUNIZATIONS No Information SOCIAL [...] Orally Once a day Active Pepto-Bismol Active 27-1 MG 1 tablet Orally Once [...] PLAN OF TREATMENT Next Appt Details Provider Name:Karoline Mccarthy, 2021-08-0 5 11:00:00 AM, [address] [facility], , [place], [address], Insurance Providers Payer Name Payer Address Payer Phone Insured Name Patient Relati onship to Insured Coverage Start Date Coverage End Date [facility] CORPORATE CLAIMS DEPT [address] [facility] [phone] SHU FRANCISCO self
--- OUTSIDE RECORDS SUMMARY | 2021-09-09 15:52 | CCD ---
Author Author [facility] Organization [facility] Address Unknown Phone Unavailable Care Team Providers Care Dining Manager Name Role Phone Traci Miller Unavailable PROBLEMS Type Condition ICD9-CM Code [id number] Code Onset Dates Condition S tatus W/U Status Risk SNOMED Code Notes Problem Supervision of other normal Z34.80 Ac tive confirm [id number] ALLERGIES Allergen (clinical drug ingredient) Drug/Non Drug Allergy do cumented on EMR Reaction Allergy Type Onset Date Status Pertussis Vaccine Pertussis Vaccines seizures/full-body swelling Drug Allergy Active ENCOUNTERS from 1985 to 2021-08-30 Encounter Location Date Provider Diagnosis [facility] [address] [place] [address] [place] [address] Jul, Traci Miller Third trimester preg abiodun Z34.93 ; Hepatitis C antibody test positive R76.8 and 35 weeks gestation of Z3A.35 IMMUNIZATIONS No Information SOCIAL HISTORY Tobacco Use: Social History Observation Description Date Details (start date - stop date) Never Smoker Sex Assigned At : Social History Observation Description Sex Assigned At Unknown Tobacco Use: Question Answer Notes Are you a: never smoker REASON FOR REFERRAL No Information VITAL SIGNS Weight 217.4 lbs Jul, Weight-kg 98.61 kg Jul, Height 64.02 in Jul, BMI 37.293 kg/m2 Jul, Blood pressure systolic 120 mm Hg Jul, Blood pressure diastolic 70 mm Hg Jul, MEDICATIONS Medication SIG (Take, Route, Frequency, Duration) Notes Start Da te End Date Status Tums 500 MG 1 tablet Orally Once a day Active Pepto-Bismol Active 27-1 MG 1 tablet Orally Once a day Active PROCEDURES No Information RESULTS No Results REASON FOR VISIT 1 wk PN MEDICAL (GENERAL) HISTORY Type Description Date Medical History Low Blood Pressure Surgical History Appendectomy Surgical History Cholecystectomy 08/2019 Surgical History demise at 27 weeks 2001 Hospitalization History childbirth x 2 Hospitalization History Seizures as an following pert ussis Goals Section No Information Health Concerns No Information MEDICAL EQUIPMENT No Information MENTAL STATUS No Information FUNCTIONAL STATUS No Information ASSESSMENTS Encounter Date Diagnosis Assessment Notes Treatment Notes Treatm ent Clinical Notes Jul, Hepatitis C antibody test positive (ICD-10 - R76 .8) Jul, Third trimester (ICD-10 - Z34.93) Jul, 35 weeks gestation of (ICD-10 - Z3A.35 ) PLAN OF TREATMENT Next Appt Details 1 Week Reason: Insurance Providers Payer Name Payer Address Payer Phone Insured Name Patient Relati onship to Insured Coverage Start Date Coverage End Date [facility] CORPORATE CLAIMS DEPT [address] [facility] [phone] SHU FRANCISCO self
--- OUTSIDE RECORDS SUMMARY | 2021-09-09 15:52 | CCD ---
Author Author [facility] Address Unknown Phone Unavailable Support Name Relationship Address Phone UE Next Of Kin Unknown Unavailable TIOGA [employer]STRUCTION Next [place] ? [place] [address] [address] Next Of Kin Unknown Unavailable SHAILESH GALO Next Of Kin [address] [facility] [address] [place], [place] [id number] Re-disclosure Warning The records that you are [...] is protected by Article 27-F of the [facility] Public Health law. If you continue you may have access to information: Regarding HIV / AIDS; Provided by facilities licensed or operated by the [facility] Office of Mental Health; or Provided by the [facility] Office for People With Developmental Disabilities. If such information is present, then the following [facility] mandated warning applies: This information has [...] law may result in a fine or shelter sentence or both. A general authorization for the release of medical or other information is NOT sufficient authorization for further disc losure. Family History Family Member Name Family Member Gender Family Member Status Date o f Status Description Data Source(s) Unknown Female Problem [facility] ([facility]) Encounters Encounter Providers Location Date Indications Data Source(s ) Unknown [address] [facility] [address] 08/13/2021 12:00:00 AM EDT eCW1 ([facility]) ( ESTOB) [facility] [address] [place] [address] 08/06/2021 12:00:00 AM EDT eCW1 ([facility] Unknown [address] [facility] [place] [address] 08/06/2021 12:00:00 AM EDT eCW1 ([facility]) ( ESTOB) [facility] [address] [place] [address] 07/30/2021 12:00:00 AM EDT eCW1 ([facility] [place] [address] [facility] [address] 07/30/2021 12:00:00 AM EDT eCW1 ([facility]) [place] [address] [facility] [place] [address] 07/29/2021 12:00:00 AM EDT eCW1 ([facility]) Unknown [address] [facility] [place] [address] 06/29/2021 12:00:00 AM EDT eCW1 ([facility]) Unknown [address] [facility] [address] 06/10/2021 12:00:00 AM EDT eCW1 ([facility]) ( NEWOB) [facility] OB Visit [address] [place] [address] 04/23/2021 12:00:00 AM EDT eCW1 ([facility]) Medications Medication Brand Name Start Date Product Form Dose Route Admi nistrative Instructions Pharmacy Instructions Status Indications Reaction Description Data Source(s) 12-3 mg 08/29/2021 12:00:00 AM EST film [address] ONE FILM UNDER THE TONGUE TWICE A DAY AND MAY TAKE 1/2 EXTRA FOR PAIN * MAXIMUM DAILY DOSE = 2 & 1/2 PLACE ONE FILM UNDER THE TONGUE TWICE A DAY AND MAY TAKE 1/2 EXTRA FOR PAIN * MAXIMUM DAILY DOSE = 2 & 1/2 SOLD: 08/31/2021 [facility] 12-3 mg 08/04/2021 12:00:00 AM EDT film 56 DISSOLVE 1 FILM UNDER THE TONGUE TWO TIMES A DAY, MAX OF 2 FILMS PER DAY DISSOLVE 1 FILM UNDER THE TONGUE TWO TIMES A DAY, MAX OF 2 FILMS PER DAY SOLD: 08/04/2021 [facility] 20 mg 07/27/2021 12:00:00 AM EDT tablet [...] MAXIMUM DAILY DOSE = 1 SOLD: 07/27/2021 [facility] 12-3 mg 07/10/2021 12:00:00 AM [...] AILY DOSE = 1 TABLET SOLD: 07/28/2020 Kisha Grant s Insurance Providers Payer name Policy type / Coverage type Policy ID Covered libertarian ID Covered libertarian's relationship to 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 Plan Information MVP (pr) Commercial [id number] Self [employer] Insurance () Workers Compensation [id number] Self [employer] Ins (WC) Workers Compensation [id number] Self [employer] O [id number] S [id number] MVP HEALTH CARE [id number] SP [id number] [employer] O [id number] S [id number] ORYX [id number] SP [id number] Medicaid [place] Medigap Part B [id number] Self Ghi FHP-(DO Not Use) Medigap Part B [id number] Self MEDICAID [id number] SP [id number] MEDICAID JAYME [id number] S [id number] UNITED HE[employer]CARE MEDICAID JAYME HMO [id number] S [id number] SELF PAY SP [id number] S [id number] LEATHA [id number] SP [id number] 200 [id number] LEATHA [id number] SP [id number] [employer] [id number] SP [id number] Problems, Conditions, and Diagnoses Code Display Name Description Problem Type Effective Dates Data Source(s) Z34.80 care Supervision of other normal Damaris arevalo 04/22/2021 12:00:00 AM EDT eCW1 ([facility]) Surgeries/Procedures No Information Results ID Date Data Source URINE CULTURE 07/30/2021 12:00:00 AM EDT eCW1 ([facility]) Name Value Range Interpretation Code Description Data Pricila rce(s) Supporting Document(s) URINE CULTURE eCW1 ([facility]) ID Date Data Source GROUP B STREP CULTURE 07/30/2021 12:00:00 AM EDT eCW1 ([facility]) Name Value Range Interpretation Code Description Data Pricila rce(s) Supporting Document(s) GROUP B STREP CULTURE eCW1 ([facility]) ID Date Data Source [id number] 07/30/2021 12:00:00 AM EDT eCW1 ([facility]) Name Value Range Interpretation Code Description Data Pricila rce(s) Supporting Document(s) HIV 1and2 ANTIBODY SCREEN eCW1 ([facility]) ID Date Data Source CBC - Complete Blood Count 07/30/2021 12:00:00 AM EDT eCW1 ( [facility]) Name Value Range Interpretation Code Description Data Pricila rce(s) Supporting Document(s) 11.6 12.0-15.5 HEMOGLOBIN eCW1 ([facility]) 10.8 4.0-10.0 WHITE BLOOD COUNT eCW1 ([facility]) 3.86 4.00-5.40 RED BLOOD COUNT eCW1 ([facility]) 33.3 32.0-36.5 MEAN CORPUSCULAR HGB CONC eCW1 ([facility]) 34.8 36.0-47.0 HEMATOCRIT eCW1 ([facility]) 90.2 80.0-96.0 MEAN CORPUSCULAR VOLUME e CW1 ([facility]) 30.1 27.0-33.0 MEAN CORPUSCULAR HEMOGLOB IN eCW1 ([facility]) 211 150-450 PLATELET COUNT, AUTOMATED eCW1 ([facility]) 12.1 11.5-14.5 RED CELL DISTRIBUTION WID TH eCW1 ([facility]) ID Date Data Source [id number] 06/08/2021 12:25:00 AM EDT [facility] Name Value Range Interpretation Code Description Data Pricila rce(s) Supporting Document(s) SARS coronavirus 2 RNA [Presence] in Res piratory specimen by DAMARIS with probe detection NEGATIVE [facility] This lab was ordered by [facility] a nd reported by [facility]. Procedure Social History Code Duration Value Status Description Data Source(s ) Smoking 08/19/2021 12:00:00 AM EST Never Smoker completed Never S moker eCW1 ([facility]) Smoking 08/13/2021 12:00:00 AM EDT Never Smoker completed Never S moker eCW1 ([facility]) Smoking 08/06/2021 12:00:00 AM EDT Never Smoker completed Never S moker eCW1 ([facility]) Smoking 07/30/2021 12:00:00 AM EDT Never Smoker completed Never S moker eCW1 ([facility]) Smoking 07/30/2021 12:00:00 AM EDT Never Smoker completed Never S moker eCW1 ([facility]) Smoking 07/30/2021 12:00:00 AM EDT Never Smoker completed Never S moker eCW1 ([facility]) Smoking 05/27/2021 12:00:00 AM EDT Never Smoker completed Never S moker eCW1 ([facility]) Smoking 05/27/2021 12:00:00 AM EDT Never Smoker completed Never S moker eCW1 ([facility]) Smoking 04/23/2021 12:00:00 AM EDT Never Smoker completed Never S moker eCW1 ([facility]) Vital Signs ID Date Data Source UNK Name Value Range Interpretation Code Description Data Source(s) Body weight 217.4 [lb_av] 217.4 [lb_av] eCW1 ([facility]) Body weight 98.61 kg 98.61 kg W1 ([facility]) Body height 64.02 [in_i] 64.02 [in_i] W1 ([facility]) Body mass index (BMI) [Ratio] 37.293 kg/m2 37.2 93 kg/m2 eCW1 ([facility]) Systolic blood pressure 120 mm[Hg] 120 mm[Hg] e CW1 ([facility]) Diastolic blood pressure 70 mm[Hg] 70 mm[Hg] eCW1 ([facility]) Body weight 218.8 [lb_av] 218.8 [lb_av] eCW1 ([facility]) Body weight 99.25 kg 99.25 kg W1 ([facility]) Body height 64.02 [in_i] 64.02 [in_i] eCW1 ([facility]) Body mass index (BMI) [Ratio] 37.533 kg/m2 37.5 33 kg/m2 eCW1 ([facility]) Systolic blood pressure 126 mm[Hg] 126 mm[Hg] e CW1 ([facility]) Diastolic blood pressure 70 mm[Hg] 70 mm[Hg] eCW1 ([facility]) Body weight 192.2 [lb_av] 192.2 [lb_av] eCW1 ([facility]) Body weight 87.18 kg 87.18 kg W1 ([facility]) Body height 64.02 [in_i] 64.02 [in_i] W1 ([facility]) Body mass index (BMI) [Ratio] 32.97 kg/m2 32.97 kg/m2 W1 ([facility]) Systolic blood pressure 122 mm[Hg] 122 mm[Hg] e CW1 ([facility]) Diastolic blood pressure 78 mm[Hg] 78 mm[Hg] eCW1 ([facility])
[2021-09-09 16:10] VITALS: BP 150/88
[2021-09-09] MEDS ORDERED: LR 1,000 ML IV ONE (16:30)
[2021-09-09 16:53] LABS: HEMATOCRIT 34.7 % (36.0-47.0); HEMOGLOBIN 11.8 g/dl (12.0-15.5); MEAN CORPUSCULAR HEMOGLOBIN 29.4 pg (27.0-33.0); MEAN CORPUSCULAR VOLUME 86.5 fl (80.0-96.0); PLATELET COUNT, AUTOMATED 315 10^3/uL (150-450); RED BLOOD COUNT 4.01 10^6/uL (4.00-5.40); WHITE BLOOD COUNT 13.3 10^3/uL (4.0-10.0)
--- NOTE | 2021-09-09 17:05 | HPEPDOC ---
Obstetrical History & Physical General Date of Admission Sep 09, 2021 at 15:48 History of Present Illness Patient is a 35-year-old ,2,0,2 female at 40 + 4/7 weeks by LMP consistent with 8 week US (EDC = 09/05/21) who presents for monitoring and possible induction of labor due to bradycardia (baseline FHR 107) with minimal variability and 2 decelerations seen on exam in the clinic. Patient denies abdominal pain or tenderness, vaginal discharge, bleeding, leakage of fluids, or contractions. Good movement per patient. Chief Complaint: Observation Information Provided By: Patient Age: 35 : 4 Term: 1 Pre-term: 2 Abortions: 0 Livin Care Care: Limited Care Dating Final EDC: Sep 05, 2021 Final EDC by: 1st trimester (US) Antepartum Course Diagnos(e)s Elderly multigravida patient with history of inconsistent care, IUFD at 27 weeks with 1st , labor with 2nd , and delivery at 34 weeks with 3rd . Past Medical History Past Obstetrical History : Past Obstetrical History: Multigravida Past Medical History Medical History Positive hepatitis C diagnosis 08/06/[address] Luna. Per Dr. Luna, will treat for hepatitis C after delivery. 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 D&C after 1st due to demise at 27 weeks. 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 Surgical History: Appendectomy, Dilatation and Curettage, Gallbladder Family History Significant Family History: Diabetes, Heart disease Social History Marital Status: Single Psychosocial History: No pertinent psych hx * Smoker: non-smoker Alcohol: Denies Drugs: denies Allergies Coded Allergies: pertussis vaccine,fluid (Verified Allergy, Unknown, 01/26/21) Medications Scheduled Mineral Oil/Petrolatum,White (Artificial Tears Eye Ointment) 3.5 Gm Oint...g., 1 APLCT OS QPM Polyvinyl Alcohol (Artificial Tears) 15 Ml Drops, 1 DROP OS QID Prednisone (Prednisone) 20 Mg Tablet, 3 TAB PO DAILY No122/Iron/Folic Acid ( Multi Tablet) 1 Each Tablet, 1 TAB PO DAILY Physical Examination Physical Examination GENERAL: Alert and oriented times three. BREAST: . ABDOMEN: Gravid and non-tender to touch. FETUS: Is vertex (VTX) by sterile vaginal examination (SVE), fetus is vertex (VTX) by Scott. HEART RATE: Regular rate and rhythm. No murmurs, rubs, or gallops. LUNGS: Clear to auscultation bilaterally. No wheezing, rales, or rhonchi. EXTREMITIES: Mild pedal edema. No clonus. Laboratory Data [facility] Laboratory Tests 2 09/09/21 15:58: Serology Scanned Report Hepatitis B Testing Pertinent Laboratoy Data Blood Type: O+ Group B Streptococcus: Negative Assessment/Plan Assessment Patient is a 35-year-old (G)4 para (P)1-2-0-2 at 40+4/7 weeks by 8-week ultrasound presents to Labor and Delivery (L&D) for monitoring and possible induction of labor. Plan Admit and orient. Anesthesia Director and consent. Diet: Regular. Group B Streptococcus (GBS) negative. Labs and intravenous (IV) per unit protocol. Lactated Ringers (LR): Bolus 1000 mL, then at 125 mL/hr. C-S as appropriate. Labor and Delivery Counseling Exam: Cervix 2 to 3 cm dilated 90% effaced -2 station Patient was thoroughly counseled regarding induction of labor. I discussed medication as well as procedures performed in labor delivery. She has been verbally consented for emergency surgery blood products anesthesia and desires to proceed with admission with induction of labor. ELEONORA SEAMAN OMS-3 Sep 09, 2021 17:05 CRISTIANA VILLASENOR MD. Sep 10, 2021 01:14
[2021-09-09 17:16] LABS: AMPHETAMINES LEVEL URINE POSITIVE (NEGATIVE); BARBITURATES URINE NEGATIVE (NEGATIVE); BENZODIAZEPINES URINE POSITIVE (NEGATIVE); CANNABINOIDS URINE NEGATIVE (NEGATIVE); COCAINE METABOLITE URINE NEGATIVE (NEGATIVE); METHADONE URINE NEGATIVE (NEGATIVE); OPIATES URINE NEGATIVE (NEGATIVE); PHENCYCLIDINE URINE NEGATIVE (NEGATIVE)
[2021-09-09] MEDS: LR 1,000 ML IV SCH (17:36)
[2021-09-09 18:18] VITALS: BP 127/72
[2021-09-09] MEDS ORDERED: OXYTOCIN DRIP 30 UNITS in IV 1 EA IV SCH (20:50)
[2021-09-09] MEDS ORDERED: OXYTOCIN DRIP 30 UNITS in IV 1 EA IV PRN (20:50)
[2021-09-09] MEDS ORDERED: OXYTOCIN 30 UNITS IN 0.9% NaCl 500ML IV BAG (J2590) As Ordered ONE (20:51)
[2021-09-09] MEDS ORDERED: ACETAMINOPHEN 500 MG TAB PO PRN (21:50)
[2021-09-10] VITALS (7 sets, daily range): BP systolic 123–135; BP diastolic 63–82
[2021-09-10] MEDS ORDERED: FENTANYL 2MCG/ML ROPIVACAINE 0.2% IN 0.9% NACL 100ML IVBAG As Ordered ONE (00:01)
[2021-09-10] MEDS ORDERED: diphenhydrAMINE 50MG/ML VIAL (J1200) IV PRN (01:30)
[2021-09-10] MEDS ORDERED: FENTANYL/ROPIVACAINE/NACL BAG 100 ML EPIDURAL SCH (01:30)
[2021-09-10] MEDS ORDERED: NALOXONE INJ 0.4MG/1ML VIAL (J2310 PER 1MG) IV PRN (01:30)
[2021-09-10] MEDS ORDERED: ONDANSETRON 4MG/2ML VIAL IV PRN (01:30)
[2021-09-10] MEDS ORDERED: EPIDURAL COMMENT XX SCH (01:30)
[2021-09-10] MEDS ORDERED: LACTATED RINGER'S 1000 ML IV PRN (01:30)
[2021-09-10] MEDS ORDERED: EPIDURAL/PCA KEYS XX PRN (01:30)
[2021-09-10] MEDS ORDERED: REFRIGERATOR IV KEYS XX PRN (01:30)
[2021-09-10] MEDS: ePHEDrine SULFATE 25 MG/5 ML(5MG/ML) SYRINGE IV PRN ×3 (02:07→02:36)
[2021-09-10] MEDS: LR 1,000 ML IV SCH (04:33)
[2021-09-10 08:04] LABS: CORD GAS ABE A -7.3; CORD GAS O2 SAT A 53.6 %; CORD GAS PCO2 A 52.9 mmHg; CORD GAS PH A 7.216 UNITS; CORD GAS PO2 A 24.5 mmHg; CORD GAS SBC A 17.7 MEQ/L; CORD GAS TCO2 A 22.6 MEQ/L
[2021-09-10 08:05] LABS: CORD GAS ABE V -12.5; CORD GAS HCO3 V 17.2 MEQ/L; CORD GAS PCO2 V 54.3 mmHg; CORD GAS PH V 7.119 UNITS; CORD GAS PO2 V 22.4 mmHg; CORD GAS SBC V 13.9 MEQ/L; CORD GAS TCO2 V 18.9 MEQ/L
[2021-09-10] MEDS ORDERED: MOM 30ML SUSPENSION UDC PO PRN (08:10)
[2021-09-10] MEDS ORDERED: RHOGAM 300 MCG (1500 IU) INJ (J2790) IM SCH (08:10)
[2021-09-10] MEDS ORDERED: ACETAMINOPHEN TAB 650MG DOSE (2X325MG) PO PRN (08:10)
[2021-09-10] MEDS ORDERED: IBUPROFEN 600MG TAB PO PRN (08:10)
[2021-09-10] MEDS ORDERED: OXYTOCIN DRIP 30 UNITS in IV 1 EA IV SCH (08:10)
[2021-09-10] MEDS ORDERED: DIBUCAINE 1% OINTMENT 30GM TOP PRN (08:10)
[2021-09-10] MEDS ORDERED: ANUSOL HC CREAM 30GM TOP PRN (08:10)
[2021-09-10] MEDS ORDERED: DOCUSATE SODIUM 100MG CAPSULE PO PRN (08:10)
[2021-09-10] MEDS ORDERED: METHYLERGONOVINE MALEATE 0.2 MG TAB PO PRN (08:10)
--- NOTE | 2021-09-10 08:13 | DNPDOC ---
[facility] Delivery Note Delivery Note DATE OF DELIVERY: 09/10/2021 TIME OF : 0740 GENDER: Female APGARS: 7 and 8 WEIGHT: 3550 grams or 7 pounds 13ounces. LACERATIONS: 1MLL ANESTHESIA: Epidural ESTIMATED BLOOD LOSS: 300 ml COUNTS: 5 laparotomy sponges accounted for prior to after delivery. 3 sharps removed from delivery field. DELIVERY NOTE: On September 10, 2021 at 0 740 this patient is a 35-year-old 4 para 3 had a spontaneous vaginal delivery of a liveborn female infant Apgars 7 and 8. Head was delivered occiput anterior (OA), followed by delivery of the shoulders and corpus. was handed to mom with a good cry. Cord was clamped times two and was cut by support person under my direction. Placenta was then drained and delivered grossly intact. A premixed bag of 500 mL of normal saline with 30 units of Pitocin was then bolused along with uterine massage until the uterus was firm. On inspection there was a 1MLL that was repaired with 3-0 Vicryl. On reinspection, cervix, vagina, perineum was grossly intact and hemostatic. Mom and baby in recovery on stable condition. CRISTIANA VILLASENOR MD. Sep 10, 2021 08:13
[2021-09-10] MEDS: IBUPROFEN 800 MG TAB PO PRN ×2 (08:59→19:07)
[2021-09-10] MEDS: PRENATAL VITAMINS CHEWABLE TABLET PO SCH (08:59)
[2021-09-10] MEDS: ACETAMINOPHEN 500 MG TAB PO PRN (17:41)
[2021-09-11] MEDS: ACETAMINOPHEN 500 MG TAB PO PRN ×2 (00:34→20:22)
[2021-09-11] MEDS: IBUPROFEN 800 MG TAB PO PRN ×2 (04:34→14:10)
[2021-09-11 06:00] VITALS: BP 121/62
[2021-09-11] MEDS: PRENATAL VITAMINS CHEWABLE TABLET PO SCH (08:20)
[2021-09-11 08:30] VITALS: BP 116/66
--- NOTE | 2021-09-11 11:10 | IPNPDOC ---
Text Note Date of Service The patient was seen on 09/11/21. NOTE S: no complaints O: AVSS NAD Abd: NT, FF ext: NT A/P s/p PPD#1 routine PP care VS,Fishbone, I+O VS, Fishbone, I+O Vital Signs Date Time Temp Pulse Resp B/P (MAP) Pulse Ox O2 Delivery O2 Flow Rate FiO2 09/11/21 08:30 98.3 77 16 116/66 (83) 100 09/11/21 06:00 Room Air I&O- Last 24 Hours up to 6 AM 09/11/21 05:59 Intake Total 2290.3 ml Output Total 600 ml Balance 1690.3 ml VIKAS LEWIS MD Sep 11, 2021 11:10
[2021-09-11 17:55] VITALS: BP 117/60
[2021-09-12] MEDS: IBUPROFEN 800 MG TAB PO PRN ×2 (00:37→09:44)
[2021-09-12 06:00] VITALS: BP 116/58
[2021-09-12] MEDS: PRENATAL VITAMINS CHEWABLE TABLET PO SCH (09:44)
--- NOTE | 2021-09-12 11:42 | IPNPDOC ---
Text Note Date of Service The patient was seen on 09/12/21. NOTE Post note S: no complaints. O: AVSS NAD Abd: NT, ff ext: NT A/P PPD#2 routine PP care. VS,Fishbone, I+O VS, Fishbone, I+O Vital Signs Date Time Temp Pulse Resp B/P (MAP) Pulse Ox O2 Delivery O2 Flow Rate FiO2 09/12/21 06:00 97.6 83 18 116/58 (77) 96 Room Air VIKAS LEWIS MD Sep 12, 2021 11:42
[2021-09-12] MEDS ORDERED: ACET-683 PO (14:03)
[2021-09-12] MEDS ORDERED: IBUP80TA PO (14:03)
[2021-09-12] MEDS: ACETAMINOPHEN 500 MG TAB PO PRN (14:16)
== END 2021-09-12 14:25 | disposition home or self-care (01) | DRG 560 ==
LOC: M LDI 15:48 → M OBS 09-10 12:24
PROVIDERS: ADMIT Obstetrics & Gynecology; ATTEND Obstetrics & Gynecology
PROC: 10E0XZZ Delivery of Products of Conception, External Approach (ICD-10-PCS; principal; 2021-09-10)
PROC: 0HQ9XZZ Repair Perineum Skin, External Approach (ICD-10-PCS; 2021-09-10)
DX: O48.0 Post-term pregnancy (principal); Z3A.40 40 weeks gestation of pregnancy; Z37.0 Single live birth; O98.42 Viral hepatitis complicating childbirth; B19.20 Unspecified viral hepatitis C without hepatic coma; O09.523 Supervision of elderly multigravida, third trimester; O76 Abnormality in fetal heart rate and rhythm complicating labor and delivery; O70.0 First degree perineal laceration during delivery; Z91.19 Patient's noncompliance with other medical treatment and regimen

== ENCOUNTER → 2022-06-09 | Outpatient (CLI) | payer OTHER ==
[~2022-06-09] MED LIST changes: +ACET-683 PO; +IBUP80TA PO
[2022-06-09 13:39] LABS: BASO % 0.5 % (0.0-1.0); EOS # 0.1 10^3/uL (0.0-0.5); EOS % 1.2 % (0.0-3.0); HEMATOCRIT 39.5 % (36.0-47.0); HEMOGLOBIN 13.5 g/dl (12.0-15.5); LYMPH # 1.8 10^3/uL (1.5-5.0); MEAN CORPUSCULAR HEMOGLOBIN 30.6 pg (27.0-33.0); MEAN CORPUSCULAR HGB CONC 34.2 g/dl (32.0-36.5); MEAN CORPUSCULAR VOLUME 89.6 fl (80.0-96.0); MONO # 0.4 10^3/uL (0.0-0.8); MONO % 6.4 % (2.0-8.0); NEUTROPHILS # 3.8 10^3/uL (1.5-8.5); NEUTROPHILS % 62.7 % (36.0-66.0); PLATELET COUNT, AUTOMATED 244 10^3/uL (150-450); RED BLOOD COUNT 4.41 10^6/uL (4.00-5.40); WHITE BLOOD COUNT 6.1 10^3/uL (4.0-10.0)
[2022-06-09 14:30] LABS: BLOOD UREA NITROGEN 9 MG/DL (7-18); CREATININE FOR GFR 0.59 MG/DL (0.55-1.30); GLUCOSE, FASTING 92 MG/DL (70-100)
[2022-06-09 14:31] LABS: ALBUMIN 3.7 GM/DL (3.2-5.2); ALT/SGPT 60 U/L (12-78); BILIRUBIN,TOTAL 0.8 MG/DL (0.2-1.0); CALCIUM LEVEL 9.1 MG/DL (8.5-10.1); CARBON DIOXIDE LEVEL 27 MEQ/L (21-32); CHLORIDE LEVEL 105 MEQ/L (98-107); GLOMERULAR FILTRATION RATE > 60.0 (>60); SODIUM LEVEL 138 MEQ/L (136-145); TOTAL PROTEIN 6.8 GM/DL (6.4-8.2)
[2022-06-09 15:18] LABS: HEPATITIS B SURFACE ANTIBODY NEGATIVE (POSITIVE)
[2022-06-11 03:07] LABS: HEPATITIS A IgG TOTAL Negative (Negative); HEPATITIS B CORE ANTIBODY IGG Negative (Negative); HEPATITIS C QUANTITATION 212000 IU/mL (.)
== END ==
LOC: M PLALAB 10:37
PROVIDERS: ATTEND Internal Medicine Infectious Disease
DX: B18.2 Chronic viral hepatitis C (principal); R42 Dizziness and giddiness